=== PATIENT | male | born 1975 | race African-American/Black ===

== ENCOUNTER 2019-11-06 12:32 | Observation (INO) | payer SELFPAY ==
[2019-11-06 13:15] LABS: #Eosinphils 0.1 thou/uL (0.0-0.7); #Monocytes 0.3 thou/uL (0.11-0.59); #Neutrophils 2.8 thou/uL (1.40-6.50); %Basophils 0.4 % (0.0-1.0); %Eosinophils 1.8 % (0.0-10.0); %Monocytes 5.5 % (0.0-10.0); %Neutrophils 44.3 % (42.0-75.0); Hemoglobin 14.4 g/dL (14.0-18.0); Mean Corpuscular HGB CONC 33.8 g/dL (32.0-36.0); Mean Platelet Volume 8.7 fL (7.4-10.4); Platelet Count 201 thou/uL (130-400); RBC Distribution Width 12.4 % (11.5-14.5); Red Blood Cell (RBC) Count 5.32 mill/uL (4.70-6.10); White Blood Cell (WBC) Count 6.2 thou/uL (4.8-10.8)
[2019-11-06 13:48] LABS: ALT (SGPT) 16 U/L (8-55); AST (SGOT) 13 U/L (5-34); Alkaline Phosphatase 60 U/L (40-110); Anion Gap 14 mmol/L (10-20); BUN (Urea Nitrogen) 14 mg/dL (8.9-20.6); Bilirubin, Total 0.3 mg/dL (0.2-1.2); Calc. Creatinine Clearance 0 mL/min (70-130); Calcium 9.5 mg/dL (7.8-10.44); Carbon Dioxide 22 mmol/L (22-29); Chloride 105 mmol/L (98-107); Estimated GFR-MDRD 84; Globulin 3.4 g/dL (2.4-3.5); Glucose 182 mg/dL (70-105); Lipase 17 U/L (8-78); Potassium 3.9 mmol/L (3.5-5.1); Protein, Total 7.4 g/dL (6.0-8.3); Sodium 137 mmol/L (136-145)
[2019-11-06 15:59] LABS: Bilirubin Negative (Negative); Blood, Urine Negative (Negative); Clarity Clear (Clear); Glucose, Urine (Dipstick) Normal (Negative); Leukocyte Negative Leu/uL (Negative); Nitrite Negative (Negative); Protein, Urine (Dipstick) 10 mg/dL (Neg-Trace); Urobilinogen Normal mg/dL (Less than 2)
[2019-11-06 16:15] LABS: Lactic Acid 1.1 mmol/L (0.5-2.2)
[2019-11-06] MEDS ORDERED: Ondansetron PF 4 MG/2 ML Vial ONE (17:16)
--- NOTE | 2019-11-06 17:59 | RAD ---
PORTABLE CHEST: HISTORY: Chest tightness and shortness of breath. FINDINGS: Lung kevin appear clear. No infiltrate or vascular congestion. Heart and mediastinum appear unrema rkable. Osseous structures unremarkable. IMPRESSION: No acute findings. POS: AGW
[2019-11-06 19:26] LABS: Troponin I Less than 0.010 ng/mL (< 0.028)
[2019-11-06] MEDS ORDERED: Acetaminophen 650 MG Suppository PR PRN (20:19)
[2019-11-06] MEDS ORDERED: Acetaminophen 325 MG TAB PO PRN (20:19)
[2019-11-06] MEDS: Famotidine/PF 20 mg/2ml Vial SLOW IVP SCH (21:00)
[2019-11-06] MEDS ORDERED: HumaLOG 300 UNITS/3 ML VIAL SC PRN ×2 (21:10)
[2019-11-06] MEDS ORDERED: Dextrose 5% in Water 1,000 ML IV PRN (21:10)
[2019-11-06] MEDS ORDERED: Dextrose 50% Abboject 50 ML SYRINGE SLOW IVP PRN (21:10)
[2019-11-06] MEDS ORDERED: traMADol HCl 50 MG TAB PO PRN (23:07)
--- NOTE | 2019-11-07 00:40 | PDOC.HHP ---
Hospitalist HPI - History of Present Illness chest pain and sob History of Present Illness: Patient states he came in today due to persisting exertional chest pain and worsening dyspnea on exertion. The pain is described as a tightness. When it is at its worst it is a 9/10 in severity and is usually relieved within 15-30 minutes after he rests. He states he has had this for the last 2 weeks. He gets winded easily after walking 12- 15 feet. Reports having melena up to last . Since then his bowel movements have been normal. Additionally, reports having pain in the groin/perineal region which he was told was due to issues with his prostate. He rates this a 10/10 in severity and is made worse with movement. Two weeks ago he had CT imaging studies done at [facility] and referred to GI. Patient reports having issues with upper GI bleed which he reports was attributed to problems with his prostate. Has been waiting for referral. Reports being restarted on his BP and diabetes medications which he had been off of for some time. ED Course: EKG unremarkable. Initial troponin and BNP negative. Lactic acid 2.6 WCC 6.2, Hct 42.6, Hgb 14.4, Platelets 201, Neutrophils 44.3 UA done showed trace ketones, otherwise negative. He received Zofran 4 mg IV hydration with NS 1 L Hospitalist ROS - Review of Systems Constitutional: denies: fever, chills, sweats, weakness, malaise, other Eyes: denies: pain, vision change, conjunctivae inflammation, eyelid inflammation, redness, other ENT: denies: ear pain, ear discharge, nose pain, nose discharge, nose congestion , mouth pain, mouth swelling, throat pain, throat swelling, other Respiratory: reports: SOB with excertion. denies: cough, dry, shortness of breath, hemoptysis, pleuritic pain, sputum, wheezing, other Cardiovascular: reports: chest pain, light headedness. denies: palpitations, orthopnea, paroxysmal noc. dyspnea, edema, other Gastrointestinal: reports: abdominal pain (lower abdomen). denies: nausea, vomiting, diarrhea, constipation, melena, hematochezia, other Genitourinary: reports: dysuria. denies: frequency, incontinence, hematuria, retention, other Musculoskeletal: denies: neck pain, shoulder pain, arm pain, back pain, hand pain, leg pain, foot pain, other Skin: denies: rash, lesions, amada, bruising, other Neurological: reports: other (neuropathic pain, BLE). denies: weakness, numbness, incoordination, change in speech, confusion, seizures - Medication Medications: Active Medications Generic Name Dose Route Start Last Admin Trade Name Freq PRN Reason Stop Dose Admin Famotidine 20 mg 11/06/19 21:00 11/06/19 21:00 Pepcid SLOW IVP 20 mg Q12HR BYRON Administration Tramadol HCl 50 mg 11/06/19 23:07 11/06/19 23:30 Ultram PO 50 mg Q4H PRN Administration Moderate Pain (4-6) ALLERGIES: No known drug allergies. CURRENT MEDICATIONS: metFORMIN WedNov 06, 2019 15:18 DONITA Lara Jennifer TABLET : Strength - 500 mg : ORAL Patient Dose: 1 tab(s) Oral 2 times a day (before meals). glipiZIDE WedNov 06, 2019 15:19 DONITA Lara Jennifer tablet : Strength - 5 mg : ORAL Patient Dose: 1 tab(s) Oral 2 times a day. lisinopril WedNov 06, 2019 15:20 DONITA Lara Jennifer tablet : Strength - 20 mg : ORAL Patient Dose: 1 tab(s) Oral once a day. Hospitalist History - Past Medical History Source: patient Cardiac: reports: no pertinent history, HTN Renal/: reports: Other (Prostatitis) Endocrine: reports: Diabetes - Family History Family History: reports: Other (Prostate cancer and colon cancer on his fathers side) - Social History Smoking Status: Current some day smoker Alcohol: reports: Occassional Drugs: reports: none Living Situation: With Family Activity level: independent ambulation - Exam General Appearance: NAD, awake alert Eye: PERRL, anicteric sclera ENT: normocephalic atraumatic, moist mucosa Neck: supple, symmetric, no lymphadenopathy Heart: RRR, no murmur, no gallops, normal peripheral pulses Respiratory: CTAB, no wheezes, no ronchi, normal chest expansion Gastrointestinal: soft, non-distended, tender to palpation (diffuse) Extremities: no edema Skin: normal turgor, no lesions, no rashes Neurological: cranial nerve grossly intact, normal sensation to touch Musculoskeletal: normal tone, normal strength, no muscle wasting Psychiatric: normal affect, normal behavior, A&O x 3 Hospitalist Results - Labs Result Diagrams: 11/06/19 13:05 11/06/19 13:05 Lab results: WBC 6.2 thou/uL (4.8-10.8) 11/06/19 13:05 Hgb 14.4 g/dL (14.0-18.0) 11/06/19 13:05 Hct 42.6 % (42.0-52.0) 11/06/19 13:05 MCV 80.0 fL (78.0-98.0) 11/06/19 13:05 Plt Count 201 thou/uL (130-400) 11/06/19 13:05 Neutrophils % 44.3 % (42.0-75.0) 11/06/19 13:05 Sodium 137 mmol/L (136-145) 11/06/19 13:05 Potassium 3.9 mmol/L (3.5-5.1) 11/06/19 13:05 Chloride 105 mmol/L (98-107) 11/06/19 13:05 Carbon Dioxide 22 mmol/L (22-29) 11/06/19 13:05 BUN 14 mg/dL (8.9-20.6) 11/06/19 13:05 Creatinine 1.14 mg/dL (0.7-1.3) 11/06/19 13:05 Glucose 182 mg/dL (70-105) H 11/06/19 13:05 Lactic Acid 1.1 mmol/L (0.5-2.2) 11/06/19 15:51 Calcium 9.5 mg/dL (7.8-10.44) 11/06/19 13:05 Total Bilirubin 0.3 mg/dL (0.2-1.2) 11/06/19 13:05 AST 13 U/L (5-34) 11/06/19 13:05 ALT 16 U/L (8-55) 11/06/19 13:05 Alkaline Phosphatase 60 U/L (40-110) 11/06/19 13:05 Troponin I Less than 0.010 ng/mL (< 0.028) 11/06/19 21:48 B-Natriuretic Peptide Less than 10.0 pg/mL (0-100) 11/06/19 13:05 Serum Total Protein 7.4 g/dL (6.0-8.3) 11/06/19 13:05 Albumin 4.0 g/dL (3.5-5.0) 11/06/19 13:05 Lipase 17 U/L (8-78) 11/06/19 13:05 Urine Ketones Trace mg/dL (Negative) A 11/06/19 15:44 Urine Blood Negative (Negative) 11/06/19 15:44 Urine Nitrite Negative (Negative) 11/06/19 15:44 Ur Leukocyte Esterase Negative Cayla/uL (Negative) 11/06/19 15:44 - EKG Interpretation EKG: EKG, sinus bradycardia. No ST changes or T wave abnormalities. Hospitalist H&P A/P - Problem (1) Exertional chest pain Code(s): R07.9 - CHEST PAIN, UNSPECIFIED Status: Acute (2) Dyspnea on exertion Code(s): R06.00 - DYSPNEA, UNSPECIFIED Status: Acute (3) Abdominal discomfort Code(s): R10.9 - UNSPECIFIED ABDOMINAL PAIN Status: Acute (4) Perineal pain in male Status: Acute (5) History of TX (myocardial infarction) Code(s): I25.2 - OLD MYOCARDIAL INFARCTION Status: Chronic (6) Diabetes mellitus Code(s): E11.9 - TYPE 2 DIABETES MELLITUS WITHOUT COMPLICATIONS Status: Chronic (7) Hypertension Code(s): I10 - ESSENTIAL (PRIMARY) HYPERTENSION Status: Chronic - Plan Plan: Cardiac monitoring. Trend troponins. D-dimer added on given chest pain and sob with normal CXR and no known history of heart failure. If elevated will obtain CTA. Echo ordered. Stress test ordered for the morning. NPO after midnight. Orthostatic BPs. Monitor glucose. ISS initiated. Monitor BP. Reconcile home medications once verified. Famotidine for GI Prophylaxis. Mechanical SCDs for DVT prophylaxis. No pharmacoprophylaxis given history of recent UGI bleed. Monitor H/H. With regards to prostate problems, no indication for infection at present. Per Dr. Pickering further work-up as outpatient. CODE STATUS FULL Surrogate decision maker: His mother Patience Arechiga.
[2019-11-07 04:38] LABS: Anion Gap 11 mmol/L (10-20); BUN (Urea Nitrogen) 11 mg/dL (8.9-20.6); Calc. Creatinine Clearance 134 mL/min (70-130); Calcium 8.3 mg/dL (7.8-10.44); Carbon Dioxide 23 mmol/L (22-29); Cardiac Risk 6.6 (Less than 4.5); Chloride 106 mmol/L (98-107); Cholesterol 232 mg/dl (< 200 Desired); Estimated GFR-MDRD Greater than 90; Glucose 212 mg/dL (70-105); HDL Cholesterol 35 mg/dL (>60 Neg Risk); LDL Cholesterol, Calculated 136 mg/dL; Potassium 4.1 mmol/L (3.5-5.1); Sodium 136 mmol/L (136-145); Triglycerides 306 mg/dL (Less than 150)
[2019-11-07 05:47] LABS: Band 1 % (5-11); Eosinophils 5 % (0-10); Hemoglobin 13.3 g/dL (14.0-18.0); Lymphocytes 53 % (21-51); MDiff Complete? YES; Mean Corpuscular HGB CONC 34.1 g/dL (32.0-36.0); Mean Corpuscular Hemoglobin 27.3 pg (27.0-31.0); Mean Platelet Volume 8.9 fL (7.4-10.4); Monocytes 6 % (0-10); Neutrophil 35 % (42-75); Platelet Count 178 thou/uL (130-400); RBC Distribution Width 12.3 % (11.5-14.5); Red Blood Cell (RBC) Count 4.88 mill/uL (4.70-6.10); White Blood Cell (WBC) Count 5.1 thou/uL (4.8-10.8)
[2019-11-07] MEDS ORDERED: Aspirin 81 mg Enteric Coated Tablet PO SCH (09:00)
[2019-11-07] MEDS: Famotidine/PF 20 mg/2ml Vial SLOW IVP SCH (09:51)
--- NOTE | 2019-11-07 12:41 | NM ---
Radionucleotide stress and rest myocardial perfusion scan with CT attenuation correction and SPECT im aging Left ventricular wall motion evaluation and ejection fraction HISTORY: Adenosine protocol. There is homogeneous uptake of radiotracer throughout the left ventricul ar myocardium. No focal perfusion defect or reversibility. QGS analysis of gated SPECT images shows no focal wall motion abnormalities. Ejection fraction calcul ated at 48%. IMPRESSION : No evidence of ischemia. Borderline ejection fraction of 48% without focal wall motion abnormality evident.
[2019-11-07 13:38] VITALS: BP 145/81; TEMP 97.9
--- NOTE | 2019-11-07 13:44 | DIS ---
DATE OF ADMISSION: 11/06/2019 DATE OF DISCHARGE: 11/07/2019 DISCHARGE DISPOSITION: Home. FOLLOWUP: Follow up with Dr. Robins in 1 week. HISTORY: The patient was seen and examined on the day of discharge. Denies any new complaints. No chest pain, shortness of breath, palpitations, fever, or chills reported. PHYSICAL EXAMINATION: VITAL SIGNS: On the day of discharge show temperature 97.4, pulse rate of 65, respirations of 18, blood pressure of 133/92, and O2 saturation of 99% on room air. GENERAL: A 44-year-old male, in no apparent distress at rest. LUNGS: Clear to auscultation bilaterally. HEART: S1 and S2 present. Regular rate and rhythm. ABDOMEN: Soft. Bowel sounds present. BRIEF HOSPITAL COURSE: The patient is a 44-year-old male with diabetes mellitus type 2, presented to the emergency room with exertional dyspnea along with chest discomfort. Please refer to the history and physical for further details. The patient was admitted to the hospital with diagnosis of chest discomfort, rule out acute coronary syndrome. His serial troponins remained negative. His D-dimer was negative at 0.28. He underwent a Cardiolite stress test that showed ejection fraction of 48% without any wall motion abnormality. There was no reversible ischemia noted. Echocardiogram has been done and report is pending at the time of discharge. He was counseled to quit smoking. His fasting lipid profile showed triglycerides of 306 with cholesterol 232, LDL of 136, HDL of 35. Lifestyle modification was emphasized. The patient has been complaining of groin pain over the last month or so. He was evaluated in the emergency room 4 weeks ago and was advised to get an MRI of the lumbar spine as outpatient. He was advised to follow up on that. He was also recommended to follow up with urologist as outpatient. His stool for occult blood was negative. FINAL DIAGNOSES: 1. Exertional dyspnea with chest discomfort, acute coronary syndrome ruled out. 2. No reversible ischemia on the stress test. 3. Lower abdominal/perineal discomfort of 4 to 6 weeks in duration. The patient is awaiting appointment with the urologist. 4. Diabetes mellitus, type 2. 5. Hypertension, diet controlled. 6. Dyslipidemia. The patient may benefit from statin if he fails lifestyle modification. 7. Tobacco dependence. 8. Obesity with a BMI of 36.3. 9. The patient understands the plan of care. Job ID: [id number]
[2019-11-07 14:25] VITALS: BMI 36.3
[2019-11-07] MEDS ORDERED: Famotidine 20 MG TAB PO SCH (21:00)
== END 2019-11-07 15:25 | disposition home or self-care (01) ==
LOC: ERS 12:32 → 2NO 17:20
PROVIDERS: ADMIT Internal Medicine; ATTEND Internal Medicine
DX: R07.89 Other chest pain (principal); R06.09 Other forms of dyspnea; R10.30 Lower abdominal pain, unspecified; E11.9 Type 2 diabetes mellitus without complications; I10 Essential (primary) hypertension; E78.5 Hyperlipidemia, unspecified; F17.210 Nicotine dependence, cigarettes, uncomplicated; I25.2 Old myocardial infarction; E66.9 Obesity, unspecified; Z68.36 Body mass index [BMI] 36.0-36.9, adult; Z79.84 Long term (current) use of oral hypoglycemic drugs; Z79.899 Other long term (current) drug therapy
CPT/HCPCS: 36415; 36416; 71045; 78452; 80048; 80053; 80061; 81003; 82274; 83605; 83690; 83735; 83880; 84443; 84484; 85025; 85379; 86850; 86900; 86901; 93005; 93017; 93306; 94760; 96361; 96374; 96375; 96376; G0378; J0153; J2405; S0028

== ENCOUNTER 2023-06-09 17:00 | Outpatient (CLI) | payer OTHER | END 2023-06-09 17:01 | disposition home or self-care (01) | LOC: SLEEPLAB 17:00 | DX: G47.33 Obstructive sleep apnea (adult) (pediatric) (principal); F32.A Depression, unspecified; E11.9 Type 2 diabetes mellitus without complications; E66.9 Obesity, unspecified; I10 Essential (primary) hypertension; R53.83 Other fatigue; Z68.41 Body mass index [BMI] 40.0-44.9, adult | CPT/HCPCS: 95811 ==